=== PATIENT | female | born 1985 | race Caucasian/White ===

== ENCOUNTER 2018-04-17 09:22 | Inpatient (IN) | payer OTHER ==
[~2018-04-17] VITALS: Ht 170.2 cm; Wt 105.0 kg
[2018-04-17] VITALS (59 sets, daily range): BP systolic 78–150; BP diastolic 43–90; PULSE 54–87; TEMP 97.4–98.1
[2018-04-17] MEDS ORDERED: ZANTAC 150MG T150 MG PO (09:33)
[2018-04-17] MEDS ORDERED: PRENATAL1 TA7 PO (09:33)
[2018-04-17 10:22] LABS: BASO % 0.2 % (0.0-2.0); EOS % 0.2 % (0-4.0); GRAN # 8.3 (1.4-6.5); GRAN % 76.9 % (42.2-75.2); HEMATOCRIT 35.3 % (37.0-47.0); HEMOGLOBIN 12.4 g/dl (12.5-16.0); LYMPH # 1.7 (1.2-3.4); LYMPH % 15.3 % (20.0-51.0); MEAN CELL VOLUME 89 fl (80.0-100.0); MEAN CORPUSCULAR HEMOGLOBIN 31 pg (27.0-31.0); MEAN CORPUSCULAR HGB CONC 35 g/dl (33.0-37.0); MEAN PLATELET VOLUME 12.9 fl (7.4-10.4); MONO # 0.7 (0.1-0.6); MONO % 6.4 % (1.7-9.3); PLATELET COUNT 144 K/mm3 (130-400); RED BLOOD COUNT 3.96 M/mm3 (4.10-5.30); REDCELL DISTRIBUTION WIDTH-CV 12.6 % (11.5-14.5)
[2018-04-18] VITALS (15 sets, daily range): BP systolic 110–148; BP diastolic 59–90; PULSE 68–93; TEMP 97.7–98.4
[2018-04-19 01:30] VITALS: BP 128/68; PULSE 74; TEMP 98
[2018-04-19 08:16] VITALS: BP 119/59; PULSE 76; TEMP 97.8
[2018-04-19 16:25] VITALS: BP 136/76; PULSE 75; TEMP 97.8
[2018-04-19 21:56] VITALS: BP 126/62; PULSE 79; TEMP 98.3
[2018-04-20 07:20] VITALS: BP 148/65; PULSE 80; TEMP 97.7
[2018-04-20] MEDS ORDERED: PERCOCET 325 MG1 TA2 PO (10:22)
[2018-04-20] MEDS ORDERED: IBU600 MG PO (10:22)
== END 2018-04-20 11:25 | disposition home or self-care (01) | DRG 775 ==
LOC: LDRO 09:22 → LDR 09:47 → OB 09:47
PROVIDERS: Obstetrics & Gynecology
PROC: 10E0XZZ Delivery of Products of Conception, External Approach (ICD-10-PCS; principal; 2018-04-18)
PROC: 0KQM0ZZ Repair Perineum Muscle, Open Approach (ICD-10-PCS; 2018-04-18)
DX: O70.1 Second degree perineal laceration during delivery (principal); Z37.0 Single live birth; Z3A.38 38 weeks gestation of pregnancy
CPT/HCPCS: J2405; J2590; J7120

== ENCOUNTER → 2018-04-26 | Outpatient (CLI) | payer OTHER ==
[~2018-04-26] MED LIST: IBU600 MG PO; PERCOCET 325 MG1 TA2 PO; PRENATAL1 TA7 PO; ZANTAC 150MG T150 MG PO
== END ==
LOC: LAC 10:59
DX: Z39.1 Encounter for care and examination of lactating mother (principal); Z71.89 Other specified counseling

== ENCOUNTER → 2018-05-10 | Outpatient (CLI) | payer OTHER | LOC: OLC 10:08 | DX: Z39.1 Encounter for care and examination of lactating mother (principal); Z71.89 Other specified counseling ==